=== PATIENT | male | born 1945 | race Caucasian/White ===

== ENCOUNTER 2020-10-14 06:40 | Day surgery (SDC) | payer OTHER, BC ==
[~2020-10-14 06:40] MED LIST: Lactated Ringers 1,000 ML IV SCH
[2020-10-14] MEDS ORDERED: Propofol 200 MG/20 ML SDV ONE ×2 (07:43→08:39)
[2020-10-14] MEDS ORDERED: fentaNYL 100 MCG/2 ML SDV ONE (07:43)
[2020-10-14] MEDS ORDERED: Lidocaine 2% 5 ML SDV ONE (07:44)
--- NOTE | 2020-10-14 08:16 | PCM.PREANE ---
Preanesthetic Assessment - Anesthesia/Transfusion/Family Hx Anesthesia History: Prior Anesthesia Without Reaction Family History of Anesthesia Reaction: No Transfusion History: No Prior Transfusion(s) - Review of Systems General: No Symptoms Pulmonary: No Symptoms Cardiovascular: No Symptoms Gastrointestinal: No Symptoms Neurological: No Symptoms Other: Reports: None - Physical Assessment NPO Status Date: 10/14/20 NPO Status Time: 00:01 Height: 6 ft 3 in Weight: 205 lb ASA Class: 2 Mental Status: Alert & Oriented x3 Airway Class: Mallampati = 2 Dentition: Reports: Normal Dentition ROM/Head Extension: Limited/Partial Lungs: Clear to Auscultation, Normal Respiratory Effort Cardiovascular: Regular Rate, Regular Rhythm - Lab Values: Laboratory Last Values SARS-CoV-2 RNA (ADRIANA) NEGATIVE (NEGATIVE) 10/14/20 06:50 - Allergies Allergies/Adverse Reactions: Allergies Allergy/AdvReac Type Severity Reaction Status Date / Time No Known Allergies Allergy Verified 10/14/20 08:00 - Anesthesia Plan Pre-Op Medication Ordered: None - Acknowledgements Anesthesia Type Planned: General Anesthesia Pt an Appropriate Candidate for the Planned Anesthesia: Yes Alternatives and Risks of Anesthesia Discussed w Pt/Guardian: Yes Pt/Guardian Understands and Agrees with Anesthesia Plan: Yes Additional Comments: npo htn no cv problems andi tob quit 1989 daily chew tob etoh 2 shots whiskepy daily last monday night par no questions PreAnesthesia Questionnaire HEENT History: Reports: Other (See Below) Other HEENT History: uses reading glasses Cardiovascular History: Reports: Hypertension Respiratory History: Reports: COPD Other Respiratory History: monitors pulse ox and uses inhaler if SaO2 gets to 90% Gastrointestinal History: Reports: GERD Genitourinary History: Reports: None Musculoskeletal History: Reports: Fracture Other Musculoskeletal History: hx of fx wrist Neurological History: Reports: None Psychiatric History: Reports: None Endocrine/Metabolic History: Reports: None Hematologic History: Reports: None Immunologic History: Reports: None Oncologic (Cancer) History: Reports: None Dermatologic History: Reports: Other (See Below) Other Dermatologic History: 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 - Past Surgical History Head Surgeries/Procedures: Reports: None Respiratory Surgical History: Reports: None GI Surgical History: Reports: Colonoscopy, Hernia, Inguinal Male Surgical History: Reports: None Neurological Surgical History: Reports: None Musculoskeletal Surgical History: Reports: None Oncologic Surgical History: Reports: None - SUBSTANCE USE Tobacco Use Status *Q: Former Tobacco User Tobacco Use Within Last Twelve Months: Smokeless Tobacco Recreational Drug Use History: No - HOME MEDS Home Medications: Home Meds Ascorbic Acid [Vitamin C] 500 mg PO DAILY 10/08/20 [History] Aspirin [Adult Low Dose Aspirin EC] 81 mg PO DAILY 10/08/20 [History] Budesonide/Formoterol [Symbicort 160-4.5 MCG] 1 puff INH ASDIRECTED PRN 10/08/20 [History] Cholecalciferol (Vitamin D3) [Vitamin D3] 1,000 unit PO DAILY 10/08/20 [History] NIFEdipine [Nifedipine ER] 30 mg PO QAM 10/08/20 [History] Omeprazole 20 mg PO DAILY 10/08/20 [History] Tadalafil [Cialis] 20 mg PO ASDIRECTED PRN 10/08/20 [History] - CURRENT (IN HOUSE) MEDS Current Meds: Current Medications Lactated Ringer's (Ringers, Lactated) 1,000 mls @ 125 mls/hr IV ASDIRECTED MAGGY Discontinued Medications Fentanyl (Fentanyl 100 Mcg/2 Ml Sdv) Confirm Administered Dose 100 mcg .ROUTE .STK-MED ONE Stop: 10/14/20 07:44 Lactated Ringer's (Ringers, Lactated) 1,000 mls @ 125 mls/hr IV ASDIRECTED MAGGY Lidocaine (Lidocaine 2% 5 Ml Sdv) Confirm Administered Dose 5 ml .ROUTE .STK-MED ONE Stop: 10/14/20 07:45 Propofol (Propofol 200 Mg/20 Ml Sdv) Confirm Administered Dose 200 mg .ROUTE .STK-MED ONE Stop: 10/14/20 07:44
--- NOTE | 2020-10-14 09:17 | PCM.OPNOTE ---
- General Post-Op/Procedure Note Date of Surgery/Procedure: 10/14/20 Operative Procedure(s): EGD with biopsies. Colonoscopy with biopsies Findings: Hiatal hernia Diverticulosis dictation number [id number] Pre Op Diagnosis: History of Blanchard's. Loose stools Post-Op Diagnosis: Hiatal hernia. Diverticulosis Primary Surgeon: John Canela Pathology: Biopsies of stomach and colon Complications: None Condition: Good
--- NOTE | 2020-10-14 10:08 | PCM.POSTAN ---
POST ANESTHESIA ASSESSMENT - MENTAL STATUS Mental Status: Alert (no anesthetic problems), Oriented - VITAL SIGNS Vital Signs: Last Vital Signs Temp 97.3 F 10/14/20 09:06 Pulse 61 10/14/20 09:27 Resp 9 L 10/14/20 09:27 BP 124/68 10/14/20 09:27 Pulse Ox 98 10/14/20 09:27 - RESPIRATORY Respiratory Status: Respiratory Rate WNL, Airway Patent, O2 Saturation Stable - CARDIOVASCULAR CV Status: Pulse Rate WNL, Blood Pressure Stable - GASTROINTESTINAL GI Status: No Symptoms - POST OP HYDRATION Hydration Status: Adequate & Stable
--- NOTE | 2020-10-14 10:08 | PCM48HPAN ---
Post Anesthesia Note - EVALUATION WITHIN 48HRS OF ANESTHETIC Vital Signs in Normal Range: Yes Patient Participated in Evaluation: Yes Respiratory Function Stable: Yes Airway Patent: Yes Cardiovascular Function Stable: Yes Hydration Status Stable: Yes Pain Control Satisfactory: Yes Nausea and Vomiting Control Satisfactory: Yes Mental Status Recovered: Yes Vital Signs: Last Vital Signs Temp 97.3 F 10/14/20 09:06 Pulse 61 10/14/20 09:27 Resp 9 L 10/14/20 09:27 BP 124/68 10/14/20 09:27 Pulse Ox 98 10/14/20 09:27
--- NOTE | 2020-10-14 15:36 | OR ---
SURGEON: ESTELA CANELA MD DATE OF PROCEDURE: 10/14/2020 PREOPERATIVE DIAGNOSES: 1. Loose stools. 2. History of Blanchard esophagus. PROCEDURES PERFORMED: 1. Esophagogastroduodenoscopy with biopsy. 2. Colonoscopy with biopsies. POSTOPERATIVE DIAGNOSES: 1. Hiatal hernia. 2. Irregular gastroesophageal junction. 3. Diverticulosis. PRIMARY SURGEON: Estela Canela MD ANESTHESIA: With Anesthesiology. EXTENT OF THE COLONOSCOPY: To the cecum. EXTENT OF THE ESOPHAGOGASTRODUODENOSCOPY: At least to the second part of the duodenum. REASON FOR PROCEDURE: The patient is a pleasant 75-year-old gentleman who did have a colonoscopy, last colonoscopy was about three years ago. He had a couple of polyps removed. He has had loose stools for the last about five months since he fell sick with COVID. Denies any blood in his stool. His paternal grandfather has had colon cancer. The patient says his stools go between slightly formed to very watery. The patient also says he has a history of Blanchard. The patient was diagnosed with Blanchard at the [facility], however, on his followup EGD, he was told he had no Blanchard present. He continues on his PPIs. He denies any swallowing issues or heartburn issues. PROCEDURE IN DETAIL: Physical examination was performed. The major risks and benefits associated with the procedure were explained to the patient in detail. The patient verbalized understanding and agreement of the same. The patient was then connected to appropriate monitoring device, and IV started. EKG, pulse oximetry, blood pressure, and capnography were monitored throughout the entire procedure. Continuous oxygen and sedation were provided by the anesthesiologist. The patient was placed left lateral decubitus position. Sedation was began. After adequate sedation was achieved, an upper endoscope was advanced under direct visualization without difficulty in the upper GI tract. The anatomy and mucosa of the esophagus, GE junction, stomach, pylorus, and at least the second part of the duodenum were inspected. Duodenum appeared normal. Scope was brought back into the stomach. Both retro and antegrade views of the stomach were done. No real gastritis or irritation seen. Did do biopsies of the pylorus and antrum to check for any H pylori. On retroflex, the patient did appear to have a small sliding hiatal hernia. The scope was brought up to the GE junction. GE junction was at about 36 cm from the incisor. He appeared to have about a 3 cm sliding hiatal hernia. The GE junction was slightly irregular, no salmon-colored tongues though. Did do multiple four-quadrant biopsies of the GE junction to evaluate for Blanchard. Scope was brought back into the stomach. Stomach was desufflated. Scope was brought up to the GE junction. GE junction had good hemostasis. Scope was brought to the esophagus. Esophagus was normal. Scope was completely removed and this part of the procedure was terminated. Gloves and scopes were changed. Now, a rectal exam was performed. No rectal masses or polyps were felt. Now, a well-lubricated Olympus colonoscope was entered in the rectum and advanced under direct visualization to the level of the cecum. Cecum was identified by both visual and anatomic landmarks. Photographs were taken of the cecal cap. Scope was then slowly withdrawn in somewhat circular fashion looking at the color, texture, anatomy, and integrity of the mucosa from the cecum to the anal canal. The patient did have some diverticulosis throughout his sigmoid colon. He had some light liquid stool which was suctioned and irrigated out for a good look at the mucosa. At around 15 to 10 cm merry, he did have some mucosal looked like blue tattooing from previous scopes. No current masses or lesions were seen. Scope was retroflexed in the rectum. Scope was completely removed and the procedure was terminated. ENDOSCOPIC DIAGNOSES: 1. Approximately 3 cm sliding hiatal hernia. 2. Slightly irregular gastroesophageal junction. 3. Diverticulosis, sigmoid colon. RECOMMENDATIONS: The patient will follow up in the clinic to go over his pathology. He should continue on his PPI regime. The patient's followup colonoscopy should be in five years or sooner if he develops signs and symptoms such as change in bowel habits or blood in stool. NICOLAS / LENORE /[id number]
== END 2020-10-14 10:10 | disposition home or self-care (01) ==
LOC: MW.SDS 06:40
PROVIDERS: ATTEND Surgery
DX: K57.30 Diverticulosis of large intestine without perforation or abscess without bleeding (principal); K44.9 Diaphragmatic hernia without obstruction or gangrene; K22.8 Other specified diseases of esophagus; K22.10 Ulcer of esophagus without bleeding; Z79.82 Long term (current) use of aspirin; Z79.899 Other long term (current) drug therapy; Z80.0 Family history of malignant neoplasm of digestive organs; Z01.812 Encounter for preprocedural laboratory examination; Z20.822 Contact with and (suspected) exposure to COVID-19
CPT/HCPCS: 43239; 45380; 87635; 88305; 88312; J2704; J3010; J7120; 00813; U0002

== ENCOUNTER 2021-02-13 14:52 | Emergency (ER) | payer MEDICARE, BC ==
--- NOTE | 2021-02-13 15:13 | EDM.PDOC ---
ED HPI GENERAL MEDICAL PROBLEM - General Chief Complaint: Eye Problems Stated Complaint: PT IS HAVING PROBLEMS W/HIS EYE(S) Time Seen by Provider: 02/13/21 14:56 - History of Present Illness INITIAL COMMENTS - FREE TEXT/NARRATIVE: 75-year-old male former heavy smoker but not an active smoker history of hypertension on nifedipine history of Raynaud's syndrome presenting with painless vision loss in the right eye. Starting 4 days ago the patient developed a very minor pressure-like sensation in the right eye but no visual changes at that time. He woke up the next morning and had a dense bronson film over his vision in the right eye and significant diminished light perception and diminished vision. He can differentiate shades and he can register movement but cannot see any fine shapes. He has no eye pain he has no dizziness he has no pain with extraocular movements he has no fever. No headache or neck pain. No chest pain no trouble breathing. Symptoms are stable since they started on Monday morning Acuities: left eye 20/30, right eye couldn't make out any letters, bilateral 20/20 - Related Data Allergies Allergy/AdvReac Type Severity Reaction Status Date / Time No Known Allergies Allergy Verified 02/13/21 14:59 Home Meds: Home Meds Ascorbic Acid [Vitamin C] 500 mg PO DAILY 10/08/20 [History] Aspirin [Adult Low Dose Aspirin EC] 81 mg PO DAILY 10/08/20 [History] Budesonide/Formoterol [Symbicort 160-4.5 MCG] 1 puff INH ASDIRECTED PRN 10/08/20 [History] Cholecalciferol (Vitamin D3) [Vitamin D3] 1,000 unit PO DAILY 10/08/20 [History] NIFEdipine [Nifedipine ER] 30 mg PO QAM 10/08/20 [History] Omeprazole 20 mg PO DAILY 10/08/20 [History] Tadalafil [Cialis] 20 mg PO ASDIRECTED PRN 10/08/20 [History] Past Medical History HEENT History: Reports: Other (See Below) Other HEENT History: uses reading glasses Cardiovascular History: Reports: Hypertension Respiratory History: Reports: COPD Other Respiratory History: monitors pulse ox and uses inhaler if SaO2 gets to 90% Gastrointestinal History: Reports: GERD Genitourinary History: Reports: None Musculoskeletal History: Reports: Fracture Other Musculoskeletal History: hx of fx wrist Neurological History: Reports: None Psychiatric History: Reports: None Endocrine/Metabolic History: Reports: None Hematologic History: Reports: None Immunologic History: Reports: None Oncologic (Cancer) History: Reports: None Dermatologic History: Reports: Other (See Below) Other Dermatologic History: 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 - Infectious Disease History Infectious Disease History: Reports: None - Past Surgical History Head Surgeries/Procedures: Reports: None Respiratory Surgical History: Reports: None GI Surgical History: Reports: Colonoscopy, Hernia, Inguinal Male Surgical History: Reports: None Neurological Surgical History: Reports: None Musculoskeletal Surgical History: Reports: None Oncologic Surgical History: Reports: None Social & Family History - Family History Family Medical History: No Pertinent Family History - Tobacco Use Tobacco Use Status *Q: Never Tobacco User Second Hand Smoke Exposure: No - Caffeine Use Caffeine Use: Reports: None - Recreational Drug Use Recreational Drug Use: No ED ROS GENERAL - Review of Systems Review Of Systems: See Below Free Text/Narrative/Comment: General: No fever. Eyes: Per HPI ENT: No sore throat. Neck: No neck stiffness. Respiratory: No shortness of breath. Cardiac: No chest pain. Gastrointestinal: No nausea, vomiting or abdominal pain. Musculoskeletal: No myalgias/arthralgias. Neurologic: No headache. ED EXAM GENERAL W FULL EYE - Physical Exam Exam: See Below Text/Narrative:: General Appearance: No acute distress, appears comfortable Skin: No rash HEENT: Normocephalic/atraumatic, sclera anicteric, mucous membranes moist, normal lids and lashes bilaterally no conjunctival injection bilaterally pupils are PERRLA but suggestion of potential subtle afferent pupillary defect with swinging flashlight test when light is moved from the unaffected left eye into the affected right eye no gross abnormality on funduscopic exam but exam significantly limited by pupillary size of 2 mm, no temporal tenderness Neck: Normal range of motion Neurologic: Awake, alert, no obvious deficits, moving all extremities Psychiatric: Appropriate, cooperative Course - Vital Signs Last Recorded V/S: Last Vital Signs Temp 97.4 F 02/13/21 14:55 Pulse 72 02/13/21 14:55 Resp 18 02/13/21 14:55 BP 128/68 02/13/21 14:55 Pulse Ox 94 L 02/13/21 14:55 Departure - Departure Time of Disposition: 15:50 Disposition: Home, Self-Care 01 Condition: Good Clinical Impression: Vision loss, right eye - Discharge Information *PRESCRIPTION DRUG MONITORING PROGRAM REVIEWED*: Not Applicable *COPY OF PRESCRIPTION DRUG MONITORING REPORT IN PATIENT BABS: Not Applicable Instructions: Visual Disturbances Forms: ED Department Discharge Additional Instructions: Please call Dr. Valencia's office on Monday morning between 730 and 8 AM please make sure you tell them that they were seen in the ER on Monday and that Dr. Valencia said you would be seen on Monday. [phone] [address] [place] [address] The following information is given to patients seen in the emergency department who are being discharged to home. This information is to outline your options for follow-up care. We provide all patients seen in our emergency department with a follow-up referral. The need for follow-up, as well as the timing and circumstances, are variable depending upon the specifics of your emergency department visit. If you don't have a primary care physician on staff, we will provide you with a referral. We always advise you to contact your personal physician following an emergency department visit to inform them of the circumstance of the visit and for follow-up with them and/or the need for any referrals to a consulting specialist. The emergency department will also refer you to a specialist when appropriate. This referral assures that you have the opportunity for follow-up care with a specialist. All of these measure are taken in an effort to provide you with optimal care, which includes your follow-up. Under all circumstances we always encourage you to contact your private physician who remains a resource for coordinating your care. When calling for follow-up care, please make the office aware that this follow-up is from your recent emergency room visit. If for any reason you are refused follow-up, please contact the [facility] Emergency Department at and asked to speak to the emergency department charge nurse. Sepsis Event Note (ED) - Evaluation Sepsis Screening Result: No Definite Risk - Focused Exam Vital Signs: Vital Signs Temp Pulse Resp BP Pulse Ox 02/13/21 14:55 97.4 F 72 18 128/68 94 L - Assessment/Plan Assessment:: 75-year-old male presenting with 3 days of stable right eye vision loss no concern for acute angle-closure glaucoma central retinal artery occlusion is a possibility but he is out of the window for any acute treatment for this condition. Likewise when considering retinal detachment. Patient discussed in full with Dr. Valencia of ophthalmology. Patient will be seen by her in follow-up on Monday. Patient expresses understanding of care and treatment plan return precaution discussed and understood.
== END 2021-02-13 16:10 | disposition home or self-care (01) ==
LOC: MW.ED 14:52
DX: H54.7 Unspecified visual loss (principal); K21.9 Gastro-esophageal reflux disease without esophagitis; J44.9 Chronic obstructive pulmonary disease, unspecified; I10 Essential (primary) hypertension; Z79.899 Other long term (current) drug therapy
CPT/HCPCS: 93005; 99284-25